=== PATIENT | female | born 1965 | race Caucasian/White ===

== ENCOUNTER 2017-08-16 12:39 | Outpatient (CLI) | payer OTHER ==
--- NOTE | 2017-08-16 15:51 | ULT ---
PELVIC ULTRASOUND Date: 08-16-17 History: Post-menopausal female patient on hormone therapy. Patient is having break-thru bleeding. FINDINGS: The uterus measures 7.3 cm x 3.6 cm x 3.6 cm. The uterus has a normal appearance and no mass is visu alized. Endometrial stripe is at the upper limits of normal to borderline thickened, measuring 0.45 cm in th ickness. No fluid or fluid collection is seen in the endometrial canal. The ovaries are not visualized bilaterally. No adnexal mass is seen. There is no free fluid seen in the cul-de-sac. IMPRESSION: 1. Upper limits normal to borderline increased thickness of the endometrial stripe which may be rela emilie to hormone replacement therapy. No fluid or fluid collection is seen in the endometrial canal. 2. Slight heterogeneous appearance of the uterus without discrete uterine mass visualized. 3. Nonvisualization of the bilateral ovaries. POS: [facility]
== END 2017-08-16 12:40 | disposition home or self-care (01) ==
LOC: SCSULT 12:39
PROVIDERS: ATTEND Family Medicine
DX: Z78.0 Asymptomatic menopausal state (principal)
CPT/HCPCS: 76856

== ENCOUNTER 2018-02-22 12:42 | Outpatient (CLI) | payer OTHER ==
--- NOTE | 2018-02-22 13:55 | MMO ---
BILATERAL SCREENING MAMMOGRAM: Date: 02/22/18 HISTORY: 52-year-old female. Routine screening mammography. COMPARISON: 07/18/15. TECHNIQUE: CC and MLO views of both breasts are submitted for interpretation. This patient's mammogram was reviewed with the assistance of computer-aided detection. FINDINGS: The breasts are composed of scattered fibroglandular tissue. Bilaterally, no suspicious dominant mass , architectural distortion, or suspicious calcifications. Stable intramammary lymph node in the left breast. IMPRESSION: BIRADS 2: Benign Finding(s) RECOMMENDATION: Annual mammogram. POS: [facility]
== END 2018-02-22 12:43 | disposition home or self-care (01) ==
LOC: SCSMAMMO 12:42
PROVIDERS: ATTEND Family Medicine
DX: Z12.31 Encounter for screening mammogram for malignant neoplasm of breast (principal)
CPT/HCPCS: 77067